=== PATIENT | female | born 1980 | race Caucasian/White ===

== ENCOUNTER → 2019-05-10 | Outpatient (CLI) | payer OTHER | LOC: OD 11:20 | PROVIDERS: ATTEND Internal Medicine Cardiovascular Disease | DX: N91.2 Amenorrhea, unspecified (principal) | CPT/HCPCS: 36415; 84703 ==

== ENCOUNTER → 2019-05-15 | Outpatient (CLI) | payer OTHER ==
[2019-05-15 14:13] LABS: MEAN CORPUSCULAR HEMOGLOBIN 29.9 pg (27.0-33.4); MEAN CORPUSCULAR VOLUME 88 fl (80-97); PLATELET COUNT 224 10^3/uL (150-450); RED BLOOD COUNT 4.68 10^6/uL (3.72-5.28); RED CELL DISTRIBUTION WIDTH 13.2 % (11.5-14.0); WHITE BLOOD COUNT 7.5 10^3/uL (4.0-10.5)
[2019-05-15 14:21] LABS: INTERNATIONAL RATION (INR) 0.89; PARTIAL THROMBOPLASTIN TIME 23.7 SEC (23.5-35.8); PROTHROMBIN TIME 12.5 SEC (11.4-15.4)
[2019-05-15 14:32] LABS: ANION GAP 11 (5-19); BLOOD UREA NITROGEN 12 mg/dL (7-20); CALCIUM 10.2 mg/dL (8.4-10.2); CARBON DIOXIDE 24 mmol/L (22-30); CHLORIDE 106 mmol/L (98-107); GLUCOSE 108 mg/dL (75-110); POTASSIUM 3.9 mmol/L (3.6-5.0); SODIUM 140.6 mmol/L (137-145)
== END ==
LOC: OD 12:55
PROVIDERS: ATTEND Physician Assistant
DX: Z01.810 Encounter for preprocedural cardiovascular examination (principal); R07.89 Other chest pain; Z79.01 Long term (current) use of anticoagulants
CPT/HCPCS: 36415; 80048; 85027; 85610; 85730